=== PATIENT | male | born 1965 | race Caucasian/White ===

== ENCOUNTER 2022-03-17 13:14 | Emergency (ER) | payer BC, SELFPAY ==
[2022-03-17 13:24] VITALS: BP 128/82; PULSE 99; RESP 16; TEMP 36.3; O2SAT 99
--- NOTE | 2022-03-17 13:45 | ED.URI ---
HPI - URI/Sore Throat General Chief Complaint: Upper Respiratory Infection Stated Complaint: Sore Throat,Sinus Time Seen by Provider: 03/17/22 13:45 Source: patient Mode of arrival: ambulatory Limitations: no limitations History of Present Illness HPI Narrative: 57 yo M presents with c/o sore throat, sinus congestion starting yesterday morning. Has taken two covid tests and both negative. States and her family just had covid and now he is getting symptoms. denies fever/chills. no CP or SOB. Pt is covid vaccinated. Would like strep test since covid test negative. All systems reviewed and negative except as noted above. Related Data Home Medications Medication Instructions Recorded Confirmed escitalopram oxalate 10 mg tablet tablet 03/17/22 fenofibrate micronized 134 mg cap 03/17/22 capsule omeprazole 40 mg capsule,delayed cap 03/17/22 release rosuvastatin 40 mg tablet tablet 03/17/22 tadalafil 20 mg tablet tablet 03/17/22 Allergies Allergy/AdvReac Type Severity Reaction Status Date / Time No Known Allergies Allergy Unverified 07/24/17 09:55 Review of Systems Review of Systems: CONSTITUTIONAL: Denies fever, chills, or sweats. EYES: Denies visual changes, redness, or discharge. ENT: Denies sinus congestion and sore throat. Denies otalgia. CARDIOVASCULAR: Denies chest pain, palpitations, or edema. RESPIRATORY: Denies cough or dyspnea. GASTROINTESTINAL: Denies abdominal pain, nausea, vomiting, or diarrhea. GENITOURINARY: Denies dysuria or hematuria. SKIN: Denies rash or itching. MUSCULOSKELETAL: Denies back pain, joint pain, or myalgia. NEUROLOGIC: Denies headache, numbness, or weakness. PSYCHIATRIC: Denies anxiety or depression. All other systems reviewed are negative, except as documented in HPI. PMFSH Comments At time of signature, agree with nursing past medical, surgical, social and family history. There is no relevant family history pertinent to the presenting complaint. Exam Narrative: GENERAL: This is a well-nourished, well-developed patient, in no apparent distress. HEAD: normocephalic, atraumatic. EYES: PERRL. Sclera clear/white. Vision is grossly intact. EARS: External ears normal, auditory canals clear and without drainage, TMs normal without perforation. Hearing grossly intact. NOSE: External nose normal with no obvious nasal discharge, nares without redness, no rhinorrhea. THROAT: Mucous membranes moist, mild erythema to posterior pharynx. NECK: Neck supple, non-tender without lymphadenopathy, masses or thyromegaly. CARDIOVASCULAR: Regular rate and rhythm without murmurs, gallops, or rubs. RESPIRATORY: Clear to auscultation. Breath sounds equal bilaterally. No wheezes, rales, or rhonchi. SKIN: warm, Dry, intact with no suspicious lesions or rash, good texture and turgor. NEURO: awake, alert, and oriented to person, place and time. There were no obvious focal neurologic abnormalities. EXTREMITIES: No joint tenderness, effusion, or edema noted. Course Course Level of Care: Express Care Visit Vital Signs Vital signs: Vital Signs Temperature 36.3 C L 03/17/22 13:24 Pulse Rate 99 03/17/22 13:24 Respiratory Rate 16 03/17/22 13:24 Blood Pressure 128/82 03/17/22 13:24 Pulse Oximetry 99 03/17/22 13:24 Oxygen Delivery Room Air 03/17/22 13:24 Temperature 36.3 C L 03/17/22 13:24 Pulse Rate 99 03/17/22 13:24 Respiratory Rate 16 03/17/22 13:24 Blood Pressure 128/82 03/17/22 13:24 Pulse Oximetry 99 03/17/22 13:24 Oxygen Delivery Room Air 03/17/22 13:24 Reviewed MDM - URI/Sore Throat MDM Narrative Medical decision making narrative: Patient is aware of diagnosis, understands and agrees to treatment plan. Anticipatory guidance given. Patient agrees to follow-up as directed and is aware of reasons to seek care at the emergency department. Portions of this record may have been created with voice recognition software Differential Diagnosis
== END 2022-03-17 14:03 | disposition home or self-care (01) ==
PROVIDERS: Emergency Provider Nurse Practitioner Family; PCP Family Medicine
DX: J06.9 Acute upper respiratory infection, unspecified (principal); Z20.822 Contact with and (suspected) exposure to COVID-19; E78.00 Pure hypercholesterolemia, unspecified; I10 Essential (primary) hypertension
CPT/HCPCS: 87081; 87880; 99213; G0463

== ENCOUNTER 2022-06-01 01:57 | Day surgery (SDC) | payer BC, SELFPAY ==
[2022-05-31 13:44] VITALS: BMI 38.3
[2022-06-01] VITALS (9 sets, daily range): BP systolic 101–117; BP diastolic 75–96; PULSE 47–79; RESP 14–20; O2SAT 95–98; BMI 37.5
--- NOTE | 2022-06-01 | ECHO_ITS ---
Patient Info Name: Rah Mcclure Age: 57 years : 1965 Gender: Male Ht: 76 in Wt: 304 lbs BSA: 2.76 m2 HR: 57 bpm Heart Rhythm: Atrial Fibrillation Exam Date: 06/01/2022 10:26 AM Exam Location: [facility] Patient Status: Outpatient Admit Date: 06/01/2022 Staff Ordering Physician: Levon Thorne MD Mate Fishing Vessel: Richar Kam RDCS, RT Attending Provider: Levon Thorne MD Referring Physician: Fadumo GAINES; Exam Type: CA echo transesophageal Study Info Indications I48.1 - Persistent atrial fibrillation Complete two-dimensional, color flow and Doppler transesophageal study is performed. Summary 1. Pre cardioversion SARA demonstrates dilated left atrium but no thrombus seen in the appendage. 2. Normal left ventricular systolic function. 3. Small amount of mitral regurgitation. Report Signatures
--- NOTE | 2022-06-01 08:30 | ECG_ITS ---
Measurements Intervals [place] Rate: 78 P: DC: 0 QRS: 74 QRSD: 101 T: 27 QT: 378 QTc: 432 Interpretive Statements ATRIAL FIBRILLATION INCOMPLETE RIGHT BUNDLE BRANCH BLOCK ABNORMAL ECG NO PREVIOUS ECG AVAILABLE FOR COMPARISON Electronically Signed On 06-01-2022 12:36:15 CDT by Ruben Terrell D.O.
[2022-06-01 09:41] LABS: Anion Gap 14 mmol/L (8-16); Blood Urea Nitrogen 22 mg/dL (9-20); Carbon Dioxide 24 mmol/L (22-30); Chloride 104 mmol/L (98-107); Estimated CRCL calculation 123 ml/min; Estimated Glomerular Filt Rate > 60; Glucose 108 mg/dL (65-110); Magnesium 1.9 mg/dL (1.6-2.3); Potassium 4.4 mmol/L (3.4-5.0); Sodium 142 mmol/L (137-145)
--- NOTE | 2022-06-01 10:11 | WPDMODSED ---
Moderate Sedation Note-Pt Data Patient Data Diagnosis: Persistent atrial fibrillation Present Complaint: none Procedure to be performed/Plan: SARA/cardioversion Allergies Allergy/AdvReac Type Severity Reaction Status Date / Time adhesive AdvReac Unknown Rash Verified 05/31/22 14:31 Home Medications Medication Instructions Recorded Confirmed Type escitalopram oxalate 10 mg tablet 1 tablet PO DAILY 03/17/22 06/01/22 History fenofibrate micronized 134 mg 1 cap PO DAILY 03/17/22 06/01/22 History capsule omeprazole 40 mg capsule,delayed 1 cap PO DAILY 03/17/22 06/01/22 History release rosuvastatin 40 mg tablet 1 tablet PO HS 03/17/22 05/31/22 History tadalafil 20 mg tablet 1 tablet PO DAILY PRN Sexual 03/17/22 05/31/22 History Activity acetaminophen 500 mg tablet 1,000 mg PO HS 05/31/22 06/01/22 History apixaban 5 mg tablet (Eliquis) 5 mg PO BID 05/31/22 06/01/22 History metoprolol tartrate 50 mg tablet 50 mg PO BID 05/31/22 06/01/22 History multivitamin 1 tablet PO DAILY 05/31/22 06/01/22 History naproxen sodium 220 mg tablet 440 mg PO DAILY 05/31/22 06/01/22 History omega-3 fatty acids-fish oil 360 1 cap PO BID 05/31/22 06/01/22 History mg-1,200 mg capsule (Fish Oil) Current Medications: Active Medications Sodium Chloride (Normal Saline Iv) 1,000 mls @ 30 mls/hr IV CONT .Q24H MAGUI Sedation/Anesthesia: No previous sedation/anesthesia problems (including family history). [facility] Social History Social History Smoking packs per day: 1.5 Smoking cigarettes per day: 30.0 Years smoked: 15 Smoking pack-years: 22.50 Smoking status: Former smoker Tobacco type: cigarettes Additional smoking assessment comments: quit around 2004 Alcohol intake: current Drinks per week: 18 Alcohol use details: beer Substance use: current Substance use type: marijuana Other substance usage details: on occasional. Last use: 05/26/22 Living arrangements: with family Additional living arrangements comments: and son Spiritual care concerns: No Mod Sed Physical Exam Physical Exam Pre Procedural Exam: Normal: Neck, Throat, Airway, Lungs, Heart Size, Neuro Exam and Extremities and Variation: Appearance (Obese gentleman no apparent distress), Heart Rate and Heart Rhythm (Irregularly irregular) Hours since solid foods: 12 Hours since liquid intake: 12 Mallampati Classification: class II Internal Medicine - PN: Obj Da Vital Signs Vital Signs: Vital Signs - 24 hr 06/01/22 09:27 Pulse Rate 77 Respiratory Rate 15 Blood Pressure 116/91 H Pulse Oximetry 96 Oxygen Delivery Room Air Meds/Results Medications: Active Medications Generic Name Dose Route Start Last Admin Trade Name Freq PRN Reason Stop Dose Admin Sodium Chloride 1,000 mls @ 30 mls/hr 06/01/22 08:30 Normal Saline Iv IV CONT .Q24H MAGUI Labs CBC & Chem 7: 06/01/22 09:17 Labs: Laboratory Results - last 24 hr 06/01/22 09:17 Sodium 142 Potassium 4.4 Chloride 104 Carbon Dioxide 24 Anion Gap 14 BUN 22 H Creatinine 0.90 Estim Creat Clear Calc 123 Estimated GFR > 60 Glucose 108 Calcium 9.0 Magnesium 1.9 ASA Classification/Sedation ASA Classification/Sedation ASA Class: III Emergent: No Risks: Risks, benefits and alternatives explained and patient/family accepted plan for sedation. Patient re-evaluated immediately prior to sedation.
--- NOTE | 2022-06-01 10:15 | ECG_ITS ---
Measurements Intervals [place] Rate: 48 P: 12 GA: 213 QRS: 69 QRSD: 105 T: 27 QT: 469 QTc: 419 Interpretive Statements SINUS BRADYCARDIA WITH FIRST DEGREE AV BLOCK INCOMPLETE RIGHT BUNDLE BRANCH BLOCK BORDERLINE ECG COMPARED TO ECG 06/01/2022 09:11:24 SINUS BRADYCARDIA NOW PRESENT FIRST DEGREE AV BLOCK NOW PRESENT Electronically Signed On 06-01-2022 16:26:04 CDT by Ruben Terrell D.O.
--- NOTE | 2022-06-01 10:30 | P.PCNCC_ITS ---
Cardiac Cath Procedure Note Date of procedure:: 06/01/22 Performing physician:: Levon Thorne MD Indication:: Persistent atrial fibrillation Brief clinical history:: This is a 57-year-old patient who recently was found as an outpatient to have developed atrial fibrillation of unknown chronicity with which he appears to be essentially asymptomatic. An attempt at restoring sinus rhythm has been recommended after he was seen in the office. He has been inconsistently taking his anticoagulant and so transesophageal echocardiography has been recommended prior to cardioversion. Procedure Procedure performed:: SARA/cardioversion Sedation/Medication given:: Intravenous propofol in aliquots total dosage of 110 mg Estimated blood loss:: 0 Procedure note:: Patient was brought to the cardiac catheterization lab holding area in the postabsorptive state. Defibrillator patches were placed in the AP position. He was in the supine position or pharyngeal benzocaine was used for topical a nesthesia in the oropharynx. A bite block was then placed into position he was then sedated with propofol. Aliquots were used 50 mg was given initially and then transesophageal echocardiography imaging was performed of the left atrium, mitral valve, left ventricle and left atrial appendage. There was no visible clot in the left atrial appendage. He was then given additional propofol 30 mg and counter shocked in a synchronized fashion with 200 joules with no difference in the rhythm. He was given an additional 30 mg of propofol and then counter shocked in a synchronized fashion at 360 joules which did restore sinus rhythm. Findings:: As above Conclusion:: Successful uncomplicated SARA/cardioversion which initially failed at 200 joules but then 6 seated at 360 joules to restore sinus rhythm. Levon Thorne MD [facility]
== END 2022-06-01 12:15 | disposition home or self-care (01) ==
LOC: ANHCATHLAB 01:57 → ANHCARD 11:56 → ANHCATHLAB 06-13 07:42
PROVIDERS: PCP Family Medicine; Visit Provider Specialist
PROC: 5A2204Z Restoration of Cardiac Rhythm, Single (ICD-10-PCS; principal; 2022-06-01 10:00)
PROC: (CPT 93312; 2022-06-01 10:00)
DX: I48.19 Other persistent atrial fibrillation (principal)
CPT/HCPCS: 36415; 80048; 83735; 92960; 93312; 93320; 93325; J2704

== ENCOUNTER 2024-01-20 03:35 | Day surgery (SDC) | payer BC, SELFPAY ==
[2024-01-17 13:44] VITALS: BMI 39.6
[2024-01-20] VITALS (7 sets, daily range): BP systolic 106–137; BP diastolic 75–97; PULSE 46–89; RESP 14–19; TEMP 36.4; O2SAT 96–100; BMI 39.2
--- NOTE | 2024-01-20 | ECHO_ITS ---
Patient Info Name: Rah Mcclure Age: 59 years : 1965 Gender: Male Ht: 76 in Wt: 321 lbs BSA: 2.85 m2 Heart Rhythm: Atrial Fibrillation Exam Date: 01/20/2024 11:24 AM Exam Location: Echo Lab Patient Status: Outpatient Admit Date: 01/20/2024 Staff Ordering Physician: Levon Thorne MD Executor Of Estate: Joanna Albrecht RDCS Attending Provider: Levon Thorne MD Referring Physician: Fadumo GAINES; Exam Type: CA echo transesophageal Study Info Indications I48.1 - Persistent atrial fibrillation Complete two-dimensional, color flow and Doppler transesophageal study is performed. Summary 1. Limited transesophageal echo done prior to cardiac. 2. Significantly dilated left atrium but no visible thrombus in the left atrial appendage which was well visualized. 3. Normal appearing aortic and mitral valve. 4. Preserved left ventricular systolic. 5. Significant biatrial dilation. Left Ventricle Left ventricular chamber dimension is normal. Left ventricular systolic function is normal with an ejection fraction by Biplane Method of Discs of Empty. Right Ventricle Right ventricular chamber dimension is not well visualized. Left Atria Left atrial chamber dimension is severely enlarged. Right Atria Right atrial chamber dimension is moderately enlarged. Atrial Appendage There is no thrombus visualized in the left atrial appendage. Aortic Valve The aortic valve is normal. Pulmonic Valve The pulmonic valve is not well visualized. Mitral Valve The mitral valve has normal leaflets. Tricuspid Valve The tricuspid valve leaflets are not well visualized. Pericardium/Pleural The pericardium appears normal. Inferior Vena Cava Not well visualized inferior vena cava with Empty collapse upon inspiration consistent with Empty right atrial pressure, Empty. Aorta The aortic root size at the sinus of Valsalva is not well visualized. Report Signatures
--- NOTE | 2024-01-20 10:00 | ECG_ITS ---
SEE SCANNED COPY FOR CONFIRMED REPORT MTDD
--- NOTE | 2024-01-20 10:30 | ECG_ITS ---
SEE SCANNED COPY FOR CONFIRMED REPORT MTDD
[2024-01-20 11:05] LABS: Anion Gap 6 mmol/L (4-12); Blood Urea Nitrogen 21 mg/dL (9-20); Calcium 9.2 mg/dL (8.4-10.2); Carbon Dioxide 25 mmol/L (22-30); Chloride 106 mmol/L (98-107); Estimated CRCL calculation 137 ml/min; Estimated Glomerular Filt Rate > 60; Glucose 102 mg/dL (65-110); Magnesium 1.8 mg/dL (1.6-2.3); Potassium 4.4 mmol/L (3.4-5.0); Sodium 137 mmol/L (137-145)
--- NOTE | 2024-01-20 11:41 | WPDCARDPROC ---
Cardiac Cath Procedure Note Date of procedure:: 01/20/24 Performing physician:: Levon Thoren MD Indication:: Recurrent atrial fibrillation Brief clinical history:: This is a 59-year-old patient with a history of atrial fibrillation who appears to have had an asymptomatic recurrence of his arrhythmia. An attempt at restoring sinus rhythm electrically has been recommended for today. Because of his inconsistency in taking his apixaban and NOAH/cardioversion was recommended. Procedure Procedure performed:: Noah/cardioversion Sedation/Medication given:: Intravenous propofol in aliquots total dosage of 100 mg Estimated blood loss:: No blood loss Procedure note:: Patient was brought to the cardiac catheterization lab holding area in the postabsorptive state. Defibrillator patches were placed in the AP position. Defibrillator was turned on at 360 joules output and synchronized. I then used or pharyngeal benzocaine for topical anesthesia and sedated the patient with a 50 mg dose of propofol. Transesophageal echo probe was then placed into the hypopharynx and into the esophagus and multiplane are NOAH images were obtained of the left atrium including the appendage. There was no evidence of left atrial appendage clot. The NOAH probe was then removed. The patient then received an additional 50 mg bolus of propofol for a total of 100 mg. He was well sedated he was then counter shocked with 360 joules in a synchronized fashion restoring sinus rhythm/sinus bradycardia. Findings:: As above Conclusion:: Successful uncomplicated NOAH/cardioversion terminating atrial fib restoring sinus bradycardia using 360 joules x1 shock after NOAH demonstrated no evidence of thrombus in the left atrial appendage. High energy was used for this procedure as previous cardioversion in 2021 failed to convert at lower energy. Levon Thorne MD [facility]
== END 2024-01-20 12:20 | disposition home or self-care (01) ==
PROVIDERS: PCP Family Medicine; Visit Provider Specialist
PROC: (CPT 93312; principal; 2024-01-20 11:30)
PROC: 5A2204Z Restoration of Cardiac Rhythm, Single (ICD-10-PCS; 2024-01-20 11:30)
DX: I48.19 Other persistent atrial fibrillation (principal); I51.7 Cardiomegaly; E78.00 Pure hypercholesterolemia, unspecified; G47.33 Obstructive sleep apnea (adult) (pediatric); E66.9 Obesity, unspecified; Z68.30 Body mass index [BMI] 30.0-30.9, adult; Z79.01 Long term (current) use of anticoagulants; Z79.1 Long term (current) use of non-steroidal anti-inflammatories (NSAID); Z80.9 Family history of malignant neoplasm, unspecified
CPT/HCPCS: 36415; 80048; 83735; 92960; 93312; 93320; 93325; J0461; J2704; J7030

== ENCOUNTER 2024-08-18 10:21 | Outpatient (CLI) | payer BC, SELFPAY | END 2024-08-19 06:58 | disposition home or self-care (01) | PROVIDERS: PCP Family Medicine; Visit Provider Family Medicine | DX: G47.33 Obstructive sleep apnea (adult) (pediatric) (principal) | CPT/HCPCS: 95810 ==

== ENCOUNTER 2024-10-01 13:37 | Outpatient (CLI) | payer BC, SELFPAY ==
--- NOTE | 2024-10-22 11:53 | WPDSLEEPSTUD ---
Sleep Study Date of Study: 10/01/24 Ordering Provider: Drake Mike MD Interpreting Physician: Emma Ortega MD Sleep Study Type: CPAP Titration Height: 1.93 m Weight: 145.15 kg Body Mass Index: 38.9 Neck Circumference (inches): 19 [place]: 9 Reason for Sleep Study * 08/18/2024; PSG with AHI 27.6, desaturation 74%; moderate sleep apnea. * 09/28/2015, polysomnogram, apnea-hypopnea index 20.7, heavy snoring, lowest saturation 75% The patient presents for a CPAP titration. Sleep History Rah Mcclure is a 59-year-old male diagnosed with obstructive sleep apnea on a basic polysomnogram in 2015; he was retested August 18, 2024 with an apnea-hypopnea index of 27.6, desaturation to 74% and a periodic limb movement index of 109.6, PLM arousal index 6.6. He returns for a full night titration. The remainder of the history is from his August 18, 2020 for sleep questionnaire. The patient frequently awakens from sleep short of breath. He occasionally awakens at night with heartburn, belching or. He constantly snores loud enough that others complain. He rarely has trouble sleeping when he has a cold. He rarely wakes up gasping for air throughout the night. He constantly has breathing problems at night observed by himself or others. He frequently sweats excessively at night. He denies having heart palpitations or irregular heartbeats during the night. He occasionally falls asleep during the day but rarely while driving. The denies cataplexy. He occasionally has trouble at school or work due to sleepiness. He rarely feels unable to move while waking up or falling asleep. He rarely experiences vivid dreamlike scenes upon awakening or falling asleep. He denies feeling afraid of going to sleep. He rarely has nightmares. He occasionally remembers his dreams. He rarely has thoughts racing through his mind. Denies feeling sad or depressed. He rarely has anxiety. He rarely has muscular tension. He rarely notices parts of his body jerk. He occasionally kicks during the night. He rarely has crawling and aching feelings in his legs and rarely has leg pain during the night. He occasionally grinds his teeth during sleep but rarely awakens of morning jaw pain. He is occasionally bothered by pain during the day but rarely awakened by pain during the night. He rarely wakes up feeling stiff in the morning. He rarely wakes up with sore or achy muscles. He rarely wakes up with pain in the neck, spine and other joints. He goes to bed at 11:00 p.m. on weekdays and at 1:00 a.m. on the weekends. It takes him 10 minutes to fall asleep. He wakes up 3-4 times throughout the night to urinate and is able to fall back asleep within 5 minutes. He wakes up between 6:30-7 a.m. on weekdays and between 7:30-8 a.m. on the weekends. He typically gets 6-7 hours of sleep per night. He will stay in bed for 10 minutes after waking up in the morning. He currently lives with his and son. He denies consuming caffeinated beverages within 2 hours of bedtime. He denies engaging in physical exercise before bedtime. He will watch television before falling asleep. He will take naps in the afternoon the evening in the refreshing. He consumes 1 cup of coffee per day. He quit smoking cigarettes 19 years ago. He consumes 5-6 beers per day. He will use cannabis recreationally. [facility] Past Medical History Medical History Atherosclerosis of [place] coronary artery of [place] heart without angina pectoris Charcot's joint, left ankle and foot Male erectile dysfunction, unspecified Major depressive disorder, single episode, in partial remission Paroxysmal atrial fibrillation Obstructive sleep apnea (adult) (pediatric) Gastro-esophageal reflux disease without esophagitis Prediabetes Hyperlipidemia, unspecified Social History Social History Smoking packs per day: 1.5 Smoking cigarettes per day: 30.0 Years smoked: 15 Smoking pack-years: 22.50 Smoking status: Former smoker Tobacco type: cigarettes Additional smoking assessment comments: quit around 2004 Alcohol intake: current Drinks per week: 20 Alcohol use details: beer Substance use: current Substance use type: former substance user Other substance usage details: on occasional. Last use: 09/23/2004 Do You Feel Safe in your Home?: Yes Lack of Transportation: No Lack of Food: Never True Current Housing: I Have Housing Concerned About Future Housing: No Difficulty Paying Gas/Electric Bills: No Difficulty Paying for Meds: No Currently Unemployed: No Education: Bachelor's Degree Difficulty w/ Childcare or Family Care: No Living arrangements: with family Additional living arrangements comments: and son Occupation/Education: occupation Gender identity (if verbalized by the patient): Male Sexual Orientation (if Verbalized by the Patient): Straight or Heterosexual Spiritual care concerns: No Medications Home Medications ?Medication ?Instructions ?Recorded ?Confirmed ?Type acetaminophen 500 mg tablet 1,000 mg PO HS 05/31/22 10/21/24 History multivitamin 1 tablet PO DAILY 05/31/22 10/21/24 History naproxen sodium 220 mg tablet 440 mg PO DAILY 05/31/22 10/21/24 History ezetimibe 10 mg tablet 10 mg PO HS #90 tabs 04/14/24 10/21/24 Rx tadalafil 20 mg tablet 20 mg PO DAILY PRN Sexual Activity 06/18/24 10/21/24 Rx #20 tabs apixaban 5 mg tablet (Eliquis) 5 mg PO BID #180 tabs 10/21/24 10/21/24 Rx escitalopram oxalate 10 mg tablet 10 mg PO DAILY #90 tabs 10/21/24 10/21/24 Rx fenofibrate micronized 134 mg 134 mg PO DAILY #90 caps 10/21/24 10/21/24 Rx capsule metoprolol tartrate 50 mg tablet 50 mg PO BID 10 days #20 tabs 10/21/24 10/21/24 Rx omeprazole 40 mg capsule,delayed 40 mg PO DAILY #90 caps 10/21/24 10/21/24 Rx release rosuvastatin 40 mg tablet 40 mg PO HS #90 tabs 10/21/24 10/21/24 Rx Sleep Procedure A full CPAP polysomnogram using the [employer] multi-channel system recorded the standard physiologic parameters including EEG, EOG, submentalis EMG, anterior tibialis EMG, EKG, body position, nasal and oral airflow using nasal pressure sensor and thermistor. Respiratory parameters of chest and abdominal movements were recorded with Respiratory Inductance Plethysmography belts. Oxygen saturation was recorded by pulse oximetry. Video monitoring was also performed. Sleep stages, periodic limb movements, and EEG arousals were scored in 30 second epochs according to the criteria of the AASM Scoring Manual. The Apnea-Hypopnea Index was calculated using CMS guidelines for definition of hypopnea while scoring respiratory events. The patient was started on CPAP using a medium [employer] Solo nasal mask, later changed to a medium ResMed AirFit N30 I nasal mask. CPAP 7 cm was the starting pressure, increased to CPAP 9 cm for snoring, increased to CPAP 11 cm for obstructive hypopneas during REM. At CPAP 11 cm, the patient spent 191.5 minutes in bed, 76.5 minutes awake, 88.5 minutes in non-REM and 26.5 minutes in REM. Sleep efficiency was 60.1. The residual apnea-hypopnea index was 2.6. The lowest saturation was 88%. He had REM in the right lateral position. This is the optimal pressure. The patient had a very long sleep latency, was able to fall asleep with the pressure was increased from 7-9 cm. He slept well on 9 and 11 cm. He had a long episode of wake at the very end of the night. He had leg movements constantly while he was asleep. Sleep Architecture The total recording time was 495.4 minutes. The total sleep time was 352.5 minutes. Sleep latency was 59.4 minutes. REM latency was 268.0 minutes. Sleep efficiency was 71.1%. The patient had 51 awakenings for an awakening index of 8.7. Wake after Sleep Onset time was 83.5 minutes. The patient spent no sleep time in Stage N1. The patient spent 150 minutes, 60.7% of sleep time in Stage N2. The patient spent 30 minutes, 12.1% of sleep time in stage N3. The patient spent 42 minutes, 17% of sleep time in stage REM. Respiratory Analysis During this study, using 4% criteria, the patient had 1 hypopnea in supine REM, 6 hypopneas in nonsupine REM, 2 obstructive apneas in supine non-REM, and 3 obstructive hypopneas in supine non-REM. He had 1 hypopnea in nonsupine non-REM. Patient had a total of 13, nd no central apneas occurred. The supine apnea-hypopnea index is 2.7. The nonsupine apnea-hypopnea index is 3.7. The REM index is 10.0. The non-REM index is 1.8. The central apnea-hypopnea index is 0. Arousals The patient a total of 16 arousals. The patient had 4 respiratory arousals for an index of 1.0, 48 periodic limb movements causing arousal for an index of 11.7, 5 isolated limb movements causing arousal for an index of 1.2 and 11 spontaneous arousals for an index of 2.7. Periodic Limb Movements The patient had a total of 21 isolated limb movements for an index of 5.1. He had is 607 periodic limb movements for an index of 147.4, elevated. This is a total of 628 limb movements for an index of 152.6. Oximetry Data The baseline saturation awake is 93%. The minimum saturation awake is 87%. The maximum saturation awake is 97%. During sleep the average saturation is 92.7%. The minimum saturation was 88% and the maximum saturation was 98% during sleep. The patient spent 1.2 minutes, 0.3% of the sleep time below 88%. There were 45 desaturations of 4% or greater for a desaturation index of 10.9. Snoring Profile Snoring was mild to moderate, eliminated at the optimal pressure. Cardiac Profile EKG showed normal sinus rhythm, average pulse 50 while awake, 46 beats per minute while awake, maximum pulse 77 beats per minute while awake. During sleep the average pulse is 47 beats per minute, the minimum pulse is 44 beats per minute and the maximum pulse is 73 beats per minute. No arrhythmias. EEG Profile EEG was unremarkable, no evidence of seizures. Assessment and Plan Assessment and Plan (1) Obstructive sleep apnea (adult) (pediatric): Code(s): G47.33 - Obstructive sleep apnea (adult) (pediatric) Status: Acute Assessment and Plan: This full night CPAP titration on 10/01/2024 shows an optimal pressure of CPAP 11 cm using a medium ResMed AirFit N 30 I nasal mask with heated humidity. The residual apnea-hypopnea index was 2.6, lowest saturation 88%, REM occurred in the right lateral position. The patient should be prescribed this ResMed equipment as well as tubing, filters and reservoir. This should be used with all episodes of sleep. Compliance should be reviewed within 31-90 days of starting therapy for usage greater than 4 hours per night greater than 70% of the nights. The patient should be asked about symptoms such as excessive daytime sleepiness, quality of sleep, decreased nocturia, increased mental functioning such as memory, mood, and concentration. BMI 39. Weight management is advised. Clinical data suggests that weight loss of 10% can reduce the severity of respiratory events and snoring and improve AHI by as much as 25%. (2) PLMD (periodic limb movement disorder): Code(s): G47.61 - Periodic limb movement disorder Status: Acute Assessment and Plan: Patient had periodic limb movement index of 147.4, and a periodic limb movement arousal index of 11.7. Sleep history indicates that he occasionally kicks at night, rarely has leg pain during the night.Ferritin level is indicated to exclude iron deficiency anemia as a contributing factor. Ferritin should be 75 ng/mL or greater. If ferritin is below this, iron supplementation should be given to achieve ferritin of 75 ng/mL. There are nonpharmacologic methods to treat limb movements including daily exercise, stretching calf muscles before bed, avoiding excessive amounts of caffeine and alcohol, vitamin B supplementation, magnesium lotion massaged into legs before bed, and use of a weighted blanket. Pharmacologic therapy is very effective for restless legs syndrome and limb movements during sleep and may include [id number] voltage-gated calcium channel ligands such as gabapentin which is preferable to dopaminergic agents which can have augmentation. Other treatments can include opioids and benzodiazepines. Data The data obtained during this sleep study is adequate for interpretation. Certification This sleep study has been reviewed by a board certified sleep medicine physician.
[2024-10-22 11:56] VITALS: BMI 38.9
== END 2024-10-02 06:12 | disposition home or self-care (01) ==
PROVIDERS: PCP Family Medicine; Visit Provider Family Medicine
DX: G47.33 Obstructive sleep apnea (adult) (pediatric) (principal); G47.61 Periodic limb movement disorder
CPT/HCPCS: 95811